=== PATIENT | male | born 1950 | race Caucasian/White ===

== ENCOUNTER → 2018-01-12 | Outpatient (CLI) | payer BC ==
--- NOTE | 2018-01-12 15:17 | Diagnostic Imaging Report ---
PROCEDURE: MRI lumbar spine. TECHNIQUE: Multiplanar, multisequence MRI of the lumbar spine was performed without contrast. INDICATION: Low back pain. FINDINGS: The alignment of the lumbar spine is normal. The vertebral body heights are well maintained. There is no spondylolysis or spondylolisthesis. No fractures are identified. Conus medullaris is seen at L1 and is normal in appearance. The T12-L1 disc is unremarkable. At L1-2, there is slight loss of disc height and signal intensity. There is also some mild hypertrophic degenerative facet disease. There is no evidence of spinal or neural foraminal stenosis. At L2-3, there is loss of disc height and signal intensity. There is broad-based annular bulging, facet disease, and thickening of the ligamentum flavum. There is mild central spinal stenosis with encroachment upon the lateral recess bilaterally. There is moderate bilateral neural foraminal encroachment. At L3-4, there is loss of disc height and signal intensity. There is facet disease with thickening of the ligamentum flavum. There is [id number] central spinal stenosis with encroachment upon the lateral recess bilaterally. There is moderate bilateral neural foraminal encroachment. At L4-5, there is broad-based annular bulging, facet disease, and thickening of the ligamentum flavum. There is moderate spinal stenosis with encroachment upon the lateral recess bilaterally. There is moderate bilateral neural foraminal encroachment. At L5-S1, there is loss of disc height and signal intensity. There is broad-based annular bulging, facet disease, and thickening of the ligamentum flavum. There is encroachment upon the lateral recess bilaterally, left greater than right. There is severe left and moderate right neural foraminal encroachment. The abdominal aorta is nonaneurysmal. There are multiple cysts in the kidneys bilaterally. IMPRESSION: Moderate lumbar spondylosis and multilevel degenerative disc disease as detailed above. Bilateral renal cysts. Dictated by: Dictated on workstation # [id number]
== END ==
LOC: RAD 13:48
PROVIDERS: ATTEND Internal Medicine
DX: M48.061 Spinal stenosis, lumbar region without neurogenic claudication (principal); M51.27 Other intervertebral disc displacement, lumbosacral region; M47.896 Other spondylosis, lumbar region; N28.1 Cyst of kidney, acquired
CPT/HCPCS: 72148